=== PATIENT | female | born 1990 | race Caucasian/White ===

== ENCOUNTER 2017-06-27 20:10 | Emergency (ER) | payer BC, MEDICAID ==
[2017-06-27 20:24] VITALS: BP 138/91
[2017-06-27] MEDS ORDERED: Lactated Ringers 1,000 ML IV ONE (20:50)
[2017-06-27] MEDS ORDERED: Atropine/Diphenoxylate 0.025-2.5 MG Tab PO ONE (20:51)
[2017-06-27] MEDS ORDERED: Ondansetron 4 MG Tab.DIS PO ONE (20:51)
--- NOTE | 2017-06-27 20:58 | EDM.PDOC ---
ED HPI GENERAL MEDICAL PROBLEM - General Chief Complaint: Gastrointestinal Problem Stated Complaint: NOT ABLE TO KEEP ANYTHING DOWN 24 HOURS Time Seen by Provider: 06/27/17 20:45 Source of Information: Reports: Patient, Old Records, RN History Limitations: Reports: No Limitations - History of Present Illness INITIAL COMMENTS - FREE TEXT/NARRATIVE: 27 yo female presents with vomiting and diarrhea since yesterday afternoon. No bleeding. Thinks she has had a low grade fever. No known exposures. Is dizzy with standing now. 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) (none) - Related Data Allergies Allergy/AdvReac Type Severity Reaction Status Date / Time No Known Allergies Allergy Verified 04/06/15 02:18 Home Meds: Home Meds NK [No Known Home Meds] 06/27/17 [History] Past Medical History - Past Health History Medical/Surgical History: Denies 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 Denies: Distension, Hematemesis, Hematochezia, Melena : Reports: No Symptoms Musculoskeletal: Reports: No Symptoms Skin: Reports: No Symptoms Neurological: Reports: No Symptoms Psychiatric: Reports: No Symptoms ED EXAM, GI/ABD - Physical Exam Exam: See Below Exam Limited By: No Limitations General Appearance: Alert, WD/WN, No Apparent Distress Eyes: Bilateral: Normal Appearance Ears: Normal External Exam, Normal Canal, Hearing Grossly Normal, Normal TMs Nose: Normal Inspection, Normal Mucosa, No Blood Throat/Mouth: Normal Inspection, Normal Lips, Normal Oropharynx, Normal Voice, No Airway Compromise Head: Atraumatic, Normocephalic Neck: Normal Inspection, Supple Respiratory/Chest: No Respiratory Distress, Lungs Clear, Normal Breath Sounds, No Accessory Muscle Use Cardiovascular: Regular Rate, Rhythm, No Edema GI/Abdominal Exam: Soft, Non-Tender, No Distention, Abnormal Bowel Sounds ( increased) Back Exam: Normal Inspection. No: CVA Tenderness (R), CVA Tenderness (L) Extremities: Normal Inspection, Normal Range of Motion, Non-Tender, No Pedal Edema Neurological: Alert, Oriented, CN II-XII Intact, Normal Cognition, No Motor/ Sensory Deficits Psychiatric: Normal Affect, Normal Mood Skin Exam: Warm, Dry, Intact, Normal Color, No Rash Lymphatic: No Adenopathy Course - Vital Signs Text/Narrative:: Feeling better after treatment. Last Recorded V/S: Last Vital Signs Temp 37.4 C 06/27/17 20:38 Pulse 118 H 06/27/17 20:38 Resp 16 06/27/17 20:38 BP 138/91 H 06/27/17 20:38 Pulse Ox 95 06/27/17 20:38 - Orders/Labs/Meds Orders: Active Orders 24 hr Category Date Time Status Lactated Ringers [Ringers, Lactated] 1,000 ml Med 06/27/17 20:50 Active IV BOLUS Medication Orders Lactated Ringer's (Ringers, Lactated) 1,000 mls @ 1,000 mls/hr IV BOLUS ONE Stop: 06/27/17 21:49 Last Admin: 06/27/17 21:03 Dose: 1,000 mls/hr Labs: Laboratory Tests 06/27/17 Range/Units 20:52 Sodium 140 (140-148) mmol/L Potassium 3.5 L (3.6-5.2) mmol/L Chloride 100 (100-108) mmol/L Carbon Dioxide 25 (21-32) mmol/L Anion Gap 18.5 H (5.0-14.0) mmol/L BUN 15 D (7-18) mg/dL Creatinine 0.9 (0.6-1.0) mg/dL Est Cr Clr Drug Dosing 85.98 mL/min Estimated GFR (MDRD) > 60 (>60) Glucose 95 (74-106) mg/dL Calcium 9.4 (8.5-10.1) mg/dL Meds: Medications Generic Name Dose Route Start Last Admin Trade Name Junie PRN Reason Stop Dose Admin Lactated Ringer's 1,000 mls @ 1,000 mls/hr 06/27/17 20:50 06/27/17 21:03 Ringers, Lactated IV 06/27/17 21:49 1,000 mls/hr BOLUS ONE Administration Discontinued Medications Generic Name Dose Route Start Last Admin Trade Name Junie PRN Reason Stop Dose Admin Diphenoxylate HCl/Atropine 2 tab 06/27/17 20:51 06/27/17 21:03 Lomotil 0.025-2.5 Mg PO 06/27/17 20:52 2 tab ONETIME ONE Administration Ondansetron HCl 4 mg 06/27/17 20:51 06/27/17 21:03 Zofran Odt PO 06/27/17 20:52 4 mg ONETIME ONE Administration Departure - Departure Time of Disposition: 22:15 Disposition: Home, Self-Care 01 Condition: Good Clinical Impression: Nausea vomiting and diarrhea - Discharge Information Referrals: PCP,None [Primary Care Provider] - Forms: ED Department Discharge - My Orders Last 24 Hours: My Active Orders 06/27/17 20:50 Lactated Ringers [Ringers, Lactated] 1,000 ml IV BOLUS - Assessment/Plan Last 24 Hours: My Active Orders 06/27/17 20:50 Lactated Ringers [Ringers, Lactated] 1,000 ml IV BOLUS
== END 2017-06-27 22:20 | disposition home or self-care (01) ==
LOC: JP.ED 20:10
DX: R11.2 Nausea with vomiting, unspecified (principal); R19.7 Diarrhea, unspecified
CPT/HCPCS: 36415; 80048; 96360; 99284; A9270; J7120

== ENCOUNTER 2019-09-22 09:49 | Inpatient (IN) | payer MEDICAID ==
[2019-09-22] MEDS ORDERED: Sodium Chloride 0.9% 10 ML Syringe FLUSH PRN (10:11)
[2019-09-22] MEDS ORDERED: Ondansetron 4 MG/2 ML SDV IV PRN (10:11)
[2019-09-22] MEDS ORDERED: Acetaminophen 325 MG Tab PO PRN (10:11)
[2019-09-22] MEDS ORDERED: Misoprostol 50 MCG (1/2 of 100 MCG) Tab VAG ONE (10:11)
--- NOTE | 2019-09-22 11:38 | PCM.LDHP ---
L&D History of Present Illness - General Date of Service: 09/22/19 Admit Problem/Dx: Patient Status Order with Admit Dx/Problem 09/22/19 10:11 Patient Status [ADT] Routine Admission Diagnosis/Problem Admission Diagnosis/Problem - Related Data Allergies/Adverse Reactions: Allergies Allergy/AdvReac Type Severity Reaction Status Date / Time No Known Allergies Allergy Verified 04/06/15 02:18 Home Medications: Home Meds Vit No.129/Iron/FA [ One Daily Tablet] 1 tab PO DAILY 09/22/19 [History] Past Medical History - Past Health History Medical/Surgical History: Denies Medical/Surgical History Gastrointestinal History: Reports: None 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: - Past Surgical History Musculoskeletal Surgical History: Reports: ORIF, Other (See Below) Social & Family History - Family History Family Medical History: Noncontributory - Tobacco Use Smoking Status *Q: Former Smoker Used Tobacco, but Quit: Yes Month/Year Tobacco Last Used: january 2019 Second Hand Smoke Exposure: No - Caffeine Use Caffeine Use: Reports: Coffee - Recreational Drug Use Recreational Drug Use: No H&P Review of Systems - Review of Systems: Review Of Systems: See Below General: Reports: No Symptoms HEENT: Reports: No Symptoms Pulmonary: Reports: No Symptoms Cardiovascular: Reports: No Symptoms Gastrointestinal: Reports: No Symptoms Genitourinary: Reports: No Symptoms Musculoskeletal: Reports: No Symptoms Skin: Reports: No Symptoms Psychiatric: Reports: No Symptoms Neurological: Reports: No Symptoms Hematologic/Lymphatic: Reports: No Symptoms Immunologic: Reports: No Symptoms L&D Exam - Exam Exam: See Below - Vital Signs Vital Signs: Last Vital Signs Temp 35.9 C L 09/22/19 09:50 Pulse 133 H 09/22/19 09:50 Resp BP 86/46 L 09/22/19 09:50 Pulse Ox Weight: 91.172 kg - OB Specific Movement: Active Heart Tones: Present Heart Rate (FHR) Variability: Moderate (6-25 bmp) Presentation: Vertex - Espinosa Score Espinosa Score Cervix Position: Midposition Espinosa Score Consistency: Soft Espinosa Score Effacement: >80% Espinosa Score Dilation: 1-2 cm Espinosa Score Infant's Station: -2 Espinosa Score Total: 8 - Exam General: Alert, Oriented, Cooperative HEENT: PERRLA, Conjunctiva Clear, EACs Clear, EOMI, Hearing Intact, Mucosa Moist & [place], Nares Patent, Normal Nasal Septum, Posterior Pharynx Clear, Pupils Equ al, Pupils Reactive, TMs Clear Neck: Supple, Trachea Midline Lungs: Clear to Auscultation, Normal Respiratory Effort Cardiovascular: Regular Rate, Regular Rhythm GI/Abdominal Exam: Normal Bowel Sounds, Soft, Non-Tender, No Organomegaly, No Distention, No Abnormal Bruit, No Mass, Pelvis Stable Rectal Exam: Normal Exam, Normal Rectal Tone Genitourinary: Normal external exam, Normal bimanual exam, Normal speculum exam Back Exam: Normal Inspection, Full Range of Motion Extremities: Normal Inspection, Normal Range of Motion, Non-Tender, No Pedal Edema, Normal Capillary Refill Skin: Warm, Dry, Intact Neurological: Cranial Nerves Intact, Reflexes Equal Bilateral Psychiatric: Alert, Normal Affect, Normal Mood - Patient Data Lab Results Last 24 hrs: Laboratory Results - last 24 hr 09/22/19 09/22/19 09/22/19 Range/Units 10:05 10:21 10:21 WBC 11.8 H (4.5-11.0) K/uL RBC 4.33 (3.30-5.50) M/uL Hgb 12.9 (12.0-15.0) g/dL Hct 39.7 (36.0-48.0) % MCV 92 (80-98) fL MCH 30 (27-31) pg MCHC 33 (32-36) % Plt Count 231 (150-400) K/uL Neut % (Auto) 71 H (36-66) % Lymph % (Auto) 21 L (24-44) % [place] % (Auto) 7 H (2-6) % Eos % (Auto) 0 L (2-4) % Baso % (Auto) 0 (0-1) % Sodium 139 L (140-148) mmol/L Potassium 3.5 L (3.6-5.2) mmol/L Chloride 103 (100-108) mmol/L Carbon Dioxide 27 (21-32) mmol/L Anion Gap 12.5 (5.0-14.0) mmol/L BUN 10 (7-18) mg/dL Creatinine 0.7 (0.6-1.0) mg/dL Est Cr Clr Drug Dosing 108.63 mL/min Estimated GFR (MDRD) > 60 (>60) Glucose 78 (74-106) mg/dL Calcium 9.1 (8.5-10.1) mg/dL Total Bilirubin 0.3 D (0.2-1.0) mg/dL AST 13 L (15-37) U/L ALT 10 L (12-78) U/L Alkaline Phosphatase 122 H D (46-116) U/L Total Protein 6.8 (6.4-8.2) g/dL Albumin 2.9 L (3.4-5.0) g/dL Globulin 3.9 H (2.3-3.5) g/dL Albumin/Globulin Ratio 0.7 L (1.2-2.2) Urine Color Yellow (YELLOW) Urine Appearance Clear (CLEAR) Urine pH 7.0 (5.0-8.0) Ur Specific [place] 1.025 (1.008-1.030) Urine Protein Negative (NEGATIVE) mg/dL Urine Glucose (UA) Negative (NEGATIVE) mg/dL Urine Ketones Negative (NEGATIVE) mg/dL Urine Occult Blood Negative (NEGATIVE) Urine Nitrite Negative (NEGATIVE) Urine Bilirubin Negative (NEGATIVE) Urine Urobilinogen 0.2 (0.2-1.0) EU/dL Ur Leukocyte Esterase Negative (NEGATIVE) Urine RBC 0-5 (0-5) Urine WBC 0-5 (0-5) Ur Epithelial Cells Few Amorphous Sediment Not seen Urine Bacteria Few Urine Mucus Few Result Diagrams: 09/22/19 10:21 09/22/19 10:21 - Problem List (1) SNOMED Code(s): 41000450 ICD Code: Z34.90 - ENCNTR FOR SUPRVSN OF NORMAL , UNSP, UNSP TRIMESTER Status: Acute Current Visit: Yes Qualifiers: Weeks of gestation: 39 weeks Qualified Code(s): Z3A.39 - 39 weeks gestation of (2) History of precipitous delivery SNOMED Code(s): 397417541 ICD Code: Z87.59 - PERSONAL HISTORY OF COMP OF PREG, CHLDBRTH AND THE PUERP Status: Acute Current Visit: Yes (3) Encounter for induction of labor SNOMED Code(s): 400992692 ICD Code: Z34.90 - ENCNTR FOR SUPRVSN OF NORMAL , UNSP, UNSP TRIMESTER Status: Acute Current Visit: Yes Problem List Initiated/Reviewed/Updated: Yes Orders Last 24hrs: Active Orders 24 hr Category Date Time Status Patient Status [ADT] Routine ADT 09/22/19 10:11 Ordered Antiembolic Devices [RC] .Routine Care 09/22/19 10:13 Ordered Communication Order [RC] ASDIRECTED Care 09/22/19 10:11 Ordered Heart Tones [RC] PER UNIT ROUTINE Care 09/22/19 10:11 Ordered Non Stress Test [RC] Click to Edit Care 09/22/19 10:11 Ordered Notify Provider Vital Signs [RC] PRN Care 09/22/19 10:11 Ordered Notify Provider [RC] PRN Care 09/22/19 10:11 Ordered OB Check [OM.PC] Click to Edit Care 09/22/19 10:04 Ordered Up ad [place] [RC] ASDIRECTED Care 09/22/19 10:11 Ordered VTE/DVT Education [RC] Click to Edit Care 09/22/19 10:13 Ordered Vital Signs [RC] PER UNIT ROUTINE Care 09/22/19 10:11 Ordered Acetaminophen [Tylenol] Med 09/22/19 10:11 Ordered 650 mg PO Q4H PRN Ondansetron [Zofran] Med 09/22/19 10:11 Ordered 4 mg IV Q4H PRN Sodium Chloride 0.9% [Saline Flush] Med 09/22/19 10:11 Ordered 10 ml FLUSH ASDIRECTED PRN DVT/VTE Prophylaxis Reflex [OM.PC] Routine Oth 09/22/19 10:11 Ordered Saline Lock Insert [OM.PC] Routine Oth 09/22/19 10:11 Ordered Resuscitation Status Routine Resus Stat 09/22/19 10:11 Ordered Medication Orders Acetaminophen (Tylenol) 650 mg PO Q4H PRN PRN Reason: Pain (Mild 1-3) and fever Ondansetron HCl (Zofran) 4 mg IV Q4H PRN PRN Reason: Nausea/Vomiting Sodium Chloride (Saline Flush) 10 ml FLUSH ASDIRECTED PRN PRN Reason: Keep Vein Open Assessment/Plan Comment:: 09/22/2019 29 yo here at 39 4/7 gestational weeks here for induction of labor due to history of precipitous FHTS category one Contractions irregular SVE-1-2/80/-2 50mcg cytotec placed vaginally Plan- Monitor for active labor Monitor FHTs Up ad shelly Can eat regular diet May get in tub for pain control Will plan and anticipate a vaginal delivery
--- NOTE | 2019-09-22 18:14 | PCM.PNLD ---
Labor Progress Note - VS & Meds Vital Signs: Last Vital Signs Temp 35.9 C L 09/22/19 09:50 Pulse 81 09/22/19 12:00 Resp 18 09/22/19 12:00 BP 114/62 09/22/19 12:00 Pulse Ox 97 09/22/19 12:00 Active Medications: Current Medications Acetaminophen (Tylenol) 650 mg PO Q4H PRN PRN Reason: Pain (Mild 1-3) and fever Oxytocin/Sodium Chloride (Pitocin In Ns 20 Units/1,000 Ml) 20 unit in 1,000 mls @ 500 mls/hr IV TITRATE VIRGILIO; Protocol Ondansetron HCl (Zofran) 4 mg IV Q4H PRN PRN Reason: Nausea/Vomiting Sodium Chloride (Saline Flush) 10 ml FLUSH ASDIRECTED PRN PRN Reason: Keep Vein Open Discontinued Medications Misoprostol (Cytotec) 50 mcg VAG ONETIME ONE Stop: 09/22/19 10:12 Last Admin: 09/22/19 10:55 Dose: 50 mcg Documented by: - Uterine Contractions Uterine Monitoring Mode: External [place] Contraction Frequency (min): 1.5-2 Contraction Duration (sec): 50-80 Contraction Intensity: Mild to Moderate Uterine Resting Tone: Soft - Monitoring Heart Rate (FHR) Variability: Moderate (6-25 bmp) - Vaginal Exam Dilation (cm): 3 Effacement (Percent): 80 Cervical Position: Midposition Sterile Vaginal Exam Performed By: Selina Roland Vaginal Exam Comment: attempted rupture of membranes - Labor Progress (Free Text) Labor Progress: 09/22/2019 Patient progressing nicely SVE-3/80/-1 FHTs category one Contractions regular Patient tolerating pain with position change Plan- Continue to monitor labor Continue to monitor FHTs Pain management per patient request May get in tub May eat regular diet Plan and anticipate a vaginal delivery
--- NOTE | 2019-09-22 18:15 | PCM.PNLD ---
Labor Progress Note - VS & Meds Vital Signs: Last Vital Signs Temp 35.9 C L 09/22/19 09:50 Pulse 81 09/22/19 12:00 Resp 18 09/22/19 12:00 BP 114/62 09/22/19 12:00 Pulse Ox 97 09/22/19 12:00 Active Medications: Current Medications Acetaminophen (Tylenol) 650 mg PO Q4H PRN PRN Reason: Pain (Mild 1-3) and fever Oxytocin/Sodium Chloride (Pitocin In Ns 20 Units/1,000 Ml) 20 unit in 1,000 mls @ 500 mls/hr IV TITRATE VIRGILIO; Protocol Ondansetron HCl (Zofran) 4 mg IV Q4H PRN PRN Reason: Nausea/Vomiting Sodium Chloride (Saline Flush) 10 ml FLUSH ASDIRECTED PRN PRN Reason: Keep Vein Open Discontinued Medications Misoprostol (Cytotec) 50 mcg VAG ONETIME ONE Stop: 09/22/19 10:12 Last Admin: 09/22/19 10:55 Dose: 50 mcg Documented by: - Uterine Contractions Uterine Monitoring Mode: External [place] Contraction Frequency (min): 1.5-2 Contraction Duration (sec): 50-80 Contraction Intensity: Mild to Moderate Uterine Resting Tone: Soft - Monitoring Heart Rate (FHR) Variability: Moderate (6-25 bmp) - Vaginal Exam Dilation (cm): 4 Effacement (Percent): 80 Cervical Position: Anterior Sterile Vaginal Exam Performed By: Selina Roland Vaginal Exam Comment: AROM clear
[2019-09-22] MEDS ORDERED: Misoprostol 200 MCG Tab ONE (20:27)
[2019-09-22] MEDS ORDERED: Lidocaine 1% 50 ML MDV ONE (20:27)
[2019-09-22] MEDS ORDERED: Carboprost Tromethamine 250 MCG/1 ML Amp ONE (20:27)
[2019-09-22] MEDS ORDERED: Methylergonovine 0.2 MG/1 ML Amp ONE (20:27)
[2019-09-22] MEDS: fentaNYL 100 MCG/2 ML SDV ONE ×2 (21:07→23:44)
[2019-09-22] MEDS ORDERED: fentaNYL 100 MCG/2 ML SDV IVPUSH ONE (21:07)
[2019-09-22] MEDS ORDERED: Ibuprofen 200 MG Tab, 24 Tab Bulk Bottle PO PRN (21:27)
[2019-09-22] MEDS ORDERED: Lanolin 100% Cream 40 GM Tube TOP ONE (21:27)
[2019-09-22] MEDS ORDERED: Docusate Sodium 100 MG Cap PO PRN (21:27)
[2019-09-22] MEDS ORDERED: Witch Hazel Medicated Pads 100/Jar TOP ONE (21:27)
[2019-09-22] MEDS ORDERED: Acetaminophen 325 MG Tab, 50 Tab Bulk Bottle PO PRN (21:27)
[2019-09-22] MEDS ORDERED: Benzocaine 20% Top Spray 56 GM Bottle TOP ONE (21:27)
--- NOTE | 2019-09-22 21:36 | PCM.DEL ---
L & D Note - General Info Date of Service: 09/22/19 Mother's Due Date: 09/26/19 - Delivery Note Labor: Spontaneous Delivery Outcome: Livebirth Infant Delivery Method: Spontaneous Vaginal Delivery-Single Infant Delivery Mode: Spontaneous Presentation: Vertex Nuchal Cord: None Anesthesia Type: None Amniotic Fluid Description: Clear Episiotomy Type: None Laceration: None, Other (small perineal skid) Placenta: Intact, Spontaneous Cord: 3 Vessels Estimated Blood Loss: 200 Resuscitation Needed: No : Bulb Syringe, Stimulated, Warmed, [place] Used Score 1 min: 9 Score 5 min: 9 Second Stage Interventions: Reports: Second Nurse Assessed Progress of Descent, Second Nurse Reviewed Contraction Pattern, Second Nurse Reviewed Heart Tones, Encouragement Given, Pushing Effectively, Pushing, Knee Chest Position Delivery Comments (Free Text/Narrative):: 09/22/2019 29 yo delivered a viable male in BARBER position over and intact perineum at 2040 on 09/22/2019. was then delivered and placed on prewarmed blanket on mothers abdomen, delayed cord clamping done for approximately 90 seconds, cord then double clamped and father of infant cut the cord. Infant was dried, stimulated and kept warm, infant began to pink in color. APGARS-9/9, weight-8lbs 0.3oz, length-20.5inches, then placenta was a little slow to come so some IV fentanyl was given and once patient relaxed placenta came intact fletcher. Three vessel cord-no lacerations noted of vagina, cervix, or rectum, small perineal skid not bleeding not repaired. now skin to skin and stable with mother in labor and delivery room. Stages of labor- [id number] - General Info Date of Service: 09/22/19 Functional Status: Reports: Pain Controlled - Review of Systems General: Reports: No Symptoms HEENT: Reports: No Symptoms Pulmonary: Reports: No Symptoms Cardiovascular: Reports: No Symptoms Gastrointestinal: Reports: No Symptoms Genitourinary: Reports: No Symptoms Musculoskeletal: Reports: No Symptoms Skin: Reports: No Symptoms Neurological: Reports: No Symptoms Psychiatric: Reports: No Symptoms - Patient Data Vitals - Most Recent: Last Vital Signs Temp 36.6 C 09/22/19 19:45 Pulse 84 09/22/19 19:45 Resp 18 09/22/19 19:45 BP 135/89 09/22/19 19:45 Pulse Ox 98 09/22/19 19:45 Weight - Most Recent: 91.172 kg Lab Results Last 24 Hours: Laboratory Results - last 24 hr 09/22/19 09/22/19 09/22/19 Range/Units 10:05 10:21 10:21 WBC 11.8 H (4.5-11.0) K/uL RBC 4.33 (3.30-5.50) M/uL Hgb 12.9 (12.0-15.0) g/dL Hct 39.7 (36.0-48.0) % MCV 92 (80-98) fL MCH 30 (27-31) pg MCHC 33 (32-36) % Plt Count 231 (150-400) K/uL Neut % (Auto) 71 H (36-66) % Lymph % (Auto) 21 L (24-44) % [place] % (Auto) 7 H (2-6) % Eos % (Auto) 0 L (2-4) % Baso % (Auto) 0 (0-1) % Sodium 139 L (140-148) mmol/L Potassium 3.5 L (3.6-5.2) mmol/L Chloride 103 (100-108) mmol/L Carbon Dioxide 27 (21-32) mmol/L Anion Gap 12.5 (5.0-14.0) mmol/L BUN 10 (7-18) mg/dL Creatinine 0.7 (0.6-1.0) mg/dL Est Cr Clr Drug Dosing 108.63 mL/min Estimated GFR (MDRD) > 60 (>60) Glucose 78 (74-106) mg/dL Calcium 9.1 (8.5-10.1) mg/dL Total Bilirubin 0.3 D (0.2-1.0) mg/dL AST 13 L (15-37) U/L ALT 10 L (12-78) U/L Alkaline Phosphatase 122 H D (46-116) U/L Total Protein 6.8 (6.4-8.2) g/dL Albumin 2.9 L (3.4-5.0) g/dL Globulin 3.9 H (2.3-3.5) g/dL Albumin/Globulin Ratio 0.7 L (1.2-2.2) Urine Color Yellow (YELLOW) Urine Appearance Clear (CLEAR) Urine pH 7.0 (5.0-8.0) Ur Specific [place] 1.025 (1.008-1.030) Urine Protein Negative (NEGATIVE) mg/dL Urine Glucose (UA) Negative (NEGATIVE) mg/dL Urine Ketones Negative (NEGATIVE) mg/dL Urine Occult Blood Negative (NEGATIVE) Urine Nitrite Negative (NEGATIVE) Urine Bilirubin Negative (NEGATIVE) Urine Urobilinogen 0.2 (0.2-1.0) EU/dL Ur Leukocyte Esterase Negative (NEGATIVE) Urine RBC 0-5 (0-5) Urine WBC 0-5 (0-5) Ur Epithelial Cells Few Amorphous Sediment Not seen Urine Bacteria Few Urine Mucus Few Med Orders - Current: Current Medications Acetaminophen (Tylenol) 650 mg PO Q4H PRN PRN Reason: Pain (Mild 1-3) and fever Acetaminophen (Tylenol Bulk Bottle) 0 mg PO Q4H PRN PRN Reason: Pain Benzocaine (Nuxe-S-Kxdfgyy 20% [place]) 0 gm TOP ONETIME ONE Stop: 09/22/19 21:28 Emollient Ointment (Lansinoh Hpa) 1 gm TOP ONETIME ONE Stop: 09/22/19 21:28 Oxytocin/Sodium Chloride (Pitocin In Ns 20 Units/1,000 Ml) 20 unit in 1,000 mls @ 500 mls/hr IV TITRATE VIRGILIO; Protocol Ibuprofen (Motrin Bulk Bottle) 600 mg PO Q6H PRN PRN Reason: Pain Ondansetron HCl (Zofran) 4 mg IV Q4H PRN PRN Reason: Nausea/Vomiting Sodium Chloride (Saline Flush) 10 ml FLUSH ASDIRECTED PRN PRN Reason: Keep Vein Open Witch Brittani (Tucks) 1 pad TOP ONETIME ONE Stop: 09/22/19 21:28 Discontinued Medications Carboprost Tromethamine (Hemabate Ds) Confirm Administered Dose 250 mcg .ROUTE .STK-MED ONE Stop: 09/22/19 20:28 Fentanyl (Sublimaze) Confirm Administered Dose 100 mcg .ROUTE .STK-MED ONE Stop: 09/22/19 21:05 Lidocaine HCl (Xylocaine 1%) Confirm Administered Dose 100 ml .ROUTE .STK-MED ONE Stop: 09/22/19 20:28 Methylergonovine Maleate (Methergine) Confirm Administered Dose 0.2 mg .ROUTE .STK-MED ONE Stop: 09/22/19 20:28 Misoprostol (Cytotec) 50 mcg VAG ONETIME ONE Stop: 09/22/19 10:12 Last Admin: 09/22/19 10:55 Dose: 50 mcg Documented by: Misoprostol (Cytotec) Confirm Administered Dose 800 mcg .ROUTE .STK-MED ONE Stop: 09/22/19 20:28 - Exam General: Alert, Oriented, Cooperative HEENT: Pupils Equal, Pupils Reactive, EOMI, Mucous Membr. Moist/[place] Neck: Supple Lungs: Clear to Auscultation, Normal Respiratory Effort Cardiovascular: Regular Rate, Regular Rhythm GI/Abdominal Exam: Normal Bowel Sounds, Soft, Non-Tender, No Organomegaly, No Distention, No Abnormal Bruit, No Mass, Pelvis Stable (Female) Exam: Normal External Exam, Normal Speculum Exam, Normal Bimanual Exam Back Exam: Normal Inspection, Full Range of Motion Extremities: Normal Inspection, Normal Range of Motion, Non-Tender, No Pedal Edema, Normal Capillary Refill Skin: Warm, Dry, Intact Neurological: No New Focal Deficit Psy/Mental Status: Alert, Normal Affect, Normal Mood - Problem List & Annotations (1) SNOMED Code(s): 44067884 Code(s): Z34.90 - ENCNTR FOR SUPRVSN OF NORMAL , UNSP, UNSP TRIMESTER Status: Acute Current Visit: Yes Qualifiers: Weeks of gestation: 39 weeks Qualified Code(s): Z3A.39 - 39 weeks gestation of (2) History of precipitous delivery SNOMED Code(s): 958717922 Code(s): Z87.59 - PERSONAL HISTORY OF COMP OF PREG, CHLDBRTH AND THE PUERP Status: Acute Current Visit: Yes (3) Encounter for induction of labor SNOMED Code(s): 843257161 Code(s): Z34.90 - ENCNTR FOR SUPRVSN OF NORMAL , UNSP, UNSP TRIMESTER Status: Acute Current Visit: Yes - Problem List Review Problem List Initiated/Reviewed/Updated: Yes - My Orders Last 24 Hours: My Active Orders 09/22/19 10:04 OB Check [OM.PC] Click to Edit 09/22/19 10:11 Patient Status [ADT] Routine Communication Order [RC] ASDIRECTED Heart Tones [RC] PER UNIT ROUTINE Non Stress Test [RC] Click to Edit Notify Provider Vital Signs [RC] PRN Notify Provider [RC] PRN Up ad [place] [RC] ASDIRECTED Vital Signs [RC] PER UNIT ROUTINE Acetaminophen [Tylenol] 650 mg PO Q4H PRN Ondansetron [Zofran] 4 mg IV Q4H PRN Sodium Chloride 0.9% [Saline Flush] 10 ml FLUSH ASDIRECTED PRN DVT/VTE Prophylaxis Reflex [OM.PC] Routine Saline Lock Insert [OM.PC] Routine Resuscitation Status Routine 09/22/19 10:13 Antiembolic Devices [RC] .Routine VTE/DVT Education [RC] Click to Edit 09/22/19 Lunch Regular Diet [DIET] 09/22/19 15:45 Oxytocin/Normal Saline [Pitocin in NS 20 Units/1,000 ML] 20 unit in 1,000 ml IV TITRATE 09/22/19 21:27 Patient Status [ADT] Routine Vital Signs [RC] PFP Acetaminophen [Tylenol Bulk Bottle] See Dose Instructions PO Q4H PRN Benzocaine [Sqqx-P-Hjsgrcl 20% [place]] See Dose Instructions TOP ONETIME ONE Docusate Sodium [Colace] 100 mg PO BID PRN Ibuprofen [Motrin Bulk Bottle] 600 mg PO Q6H PRN Lanolin [Lansinoh HPA] 1 gm TOP ONETIME ONE witch Brittani [Tucks] 1 pad TOP ONETIME ONE Assess Lochia [WOMSER] Per Unit Routine Assess Uterine Involution [WOMSER] Per Unit Routine 09/22/19 21:28 Ice Therapy [OM.PC] Per Unit Routine Perineal Care [OM.PC] Per Unit Routine Sitz Bath [OM.PC] Per Unit Routine 09/23/19 06:00 CBC WITH AUTO DIFF [HEME] Routine - Assessment Assessment:: 09/22/2019 29 yo G3 now P3 delivered without complications - Plan Plan:: 09/22/2019 29 yo here at 39 4/7 gestational weeks here for induction of labor due to history of precipitous FHTS category one Contractions irregular SVE-1-2/80/-2 50mcg cytotec placed vaginally Plan- Monitor for active labor Monitor FHTs Up ad [place] Can eat regular diet May get in tub for pain control Will plan and anticipate a vaginal delivery 09/22/2019 Routine cares Encourage and support
--- NOTE | 2019-09-23 08:04 | PCM.PNPP ---
- General Info Date of Service: 09/23/19 Functional Status: Reports: Pain Controlled - Review of Systems General: Reports: No Symptoms HEENT: Reports: No Symptoms Pulmonary: Reports: No Symptoms Cardiovascular: Reports: No Symptoms Gastrointestinal: Reports: No Symptoms Genitourinary: Reports: No Symptoms Musculoskeletal: Reports: No Symptoms Skin: Reports: No Symptoms Neurological: Reports: No Symptoms Psychiatric: Reports: No Symptoms - General Info Date of Service: 09/23/19 - Patient Data Vital Signs - Most Recent: Last Vital Signs Temp 35.9 C L 09/23/19 07:36 Pulse 86 09/23/19 07:36 Resp 16 09/23/19 07:36 BP 136/77 09/23/19 07:36 Pulse Ox 98 09/23/19 07:36 Weight - Most Recent: 91.172 kg I&O - Last 24 Hours: Intake & Output 09/22/19 09/23/19 09/23/19 22:59 06:59 14:59 Intake Total 750 Balance 750 Lab Results - Last 24 Hours: Laboratory Results - last 24 hr 09/22/19 09/22/19 09/22/19 Range/Units 10:05 10:21 10:21 WBC 11.8 H (4.5-11.0) K/uL RBC 4.33 (3.30-5.50) M/uL Hgb 12.9 (12.0-15.0) g/dL Hct 39.7 (36.0-48.0) % MCV 92 (80-98) fL MCH 30 (27-31) pg MCHC 33 (32-36) % Plt Count 231 (150-400) K/uL Neut % (Auto) 71 H (36-66) % Lymph % (Auto) 21 L (24-44) % Gaines % (Auto) 7 H (2-6) % Eos % (Auto) 0 L (2-4) % Baso % (Auto) 0 (0-1) % Sodium 139 L (140-148) mmol/L Potassium 3.5 L (3.6-5.2) mmol/L Chloride 103 (100-108) mmol/L Carbon Dioxide 27 (21-32) mmol/L Anion Gap 12.5 (5.0-14.0) mmol/L BUN 10 (7-18) mg/dL Creatinine 0.7 (0.6-1.0) mg/dL Est Cr Clr Drug Dosing 108.63 mL/min Estimated GFR (MDRD) > 60 (>60) Glucose 78 (74-106) mg/dL Calcium 9.1 (8.5-10.1) mg/dL Total Bilirubin 0.3 D (0.2-1.0) mg/dL AST 13 L (15-37) U/L ALT 10 L (12-78) U/L Alkaline Phosphatase 122 H D (46-116) U/L Total Protein 6.8 (6.4-8.2) g/dL Albumin 2.9 L (3.4-5.0) g/dL Globulin 3.9 H (2.3-3.5) g/dL Albumin/Globulin Ratio 0.7 L (1.2-2.2) Urine Color Yellow (YELLOW) Urine Appearance Clear (CLEAR) Urine pH 7.0 (5.0-8.0) Ur Specific [place] 1.025 (1.008-1.030) Urine Protein Negative (NEGATIVE) mg/dL Urine Glucose (UA) Negative (NEGATIVE) mg/dL Urine Ketones Negative (NEGATIVE) mg/dL Urine Occult Blood Negative (NEGATIVE) Urine Nitrite Negative (NEGATIVE) Urine Bilirubin Negative (NEGATIVE) Urine Urobilinogen 0.2 (0.2-1.0) EU/dL Ur Leukocyte Esterase Negative (NEGATIVE) Urine RBC 0-5 (0-5) Urine WBC 0-5 (0-5) Ur Epithelial Cells Few Amorphous Sediment Not seen Urine Bacteria Few Urine Mucus Few 09/23/19 Range/Units 06:00 WBC 17.0 H (4.5-11.0) K/uL RBC 4.12 (3.30-5.50) M/uL Hgb 12.5 (12.0-15.0) g/dL Hct 37.4 (36.0-48.0) % MCV 91 (80-98) fL MCH 30 (27-31) pg MCHC 33 (32-36) % Plt Count 220 (150-400) K/uL Neut % (Auto) 78 H (36-66) % Lymph % (Auto) 16 L (24-44) % Gaines % (Auto) 6 (2-6) % Eos % (Auto) 0 L (2-4) % Baso % (Auto) 0 (0-1) % Sodium (140-148) mmol/L Potassium (3.6-5.2) mmol/L Chloride (100-108) mmol/L Carbon Dioxide (21-32) mmol/L Anion Gap (5.0-14.0) mmol/L BUN (7-18) mg/dL Creatinine (0.6-1.0) mg/dL Est Cr Clr Drug Dosing mL/min Estimated GFR (MDRD) (>60) Glucose (74-106) mg/dL Calcium (8.5-10.1) mg/dL Total Bilirubin (0.2-1.0) mg/dL AST (15-37) U/L ALT (12-78) U/L Alkaline Phosphatase (46-116) U/L Total Protein (6.4-8.2) g/dL Albumin (3.4-5.0) g/dL Globulin (2.3-3.5) g/dL Albumin/Globulin Ratio (1.2-2.2) Urine Color (YELLOW) Urine Appearance (CLEAR) Urine pH (5.0-8.0) Ur Specific [place] (1.008-1.030) Urine Protein (NEGATIVE) mg/dL Urine Glucose (UA) (NEGATIVE) mg/dL Urine Ketones (NEGATIVE) mg/dL Urine Occult Blood (NEGATIVE) Urine Nitrite (NEGATIVE) Urine Bilirubin (NEGATIVE) Urine Urobilinogen (0.2-1.0) EU/dL Ur Leukocyte Esterase (NEGATIVE) Urine RBC (0-5) Urine WBC (0-5) Ur Epithelial Cells Amorphous Sediment Urine Bacteria Urine Mucus Med Orders - Current: Current Medications Acetaminophen (Tylenol) 650 mg PO Q4H PRN PRN Reason: Pain (Mild 1-3) and fever Last Admin: 09/22/19 22:11 Dose: 650 mg Documented by: Acetaminophen (Tylenol Bulk Bottle) 0 mg PO Q4H PRN PRN Reason: Pain Docusate Sodium (Colace) 100 mg PO BID PRN PRN Reason: Constipation Oxytocin/Sodium Chloride (Pitocin In Ns 20 Units/1,000 Ml) 20 unit in 1,000 mls @ 500 mls/hr IV TITRATE VIRGILIO; Protocol Last Titration: 09/22/19 21:15 Dose: 125 mls/hr, 125 mls/hr Documented by: Ibuprofen (Motrin Bulk Bottle) 600 mg PO Q6H PRN PRN Reason: Pain Last Admin: 09/22/19 22:10 Dose: 600 mg Documented by: Ondansetron HCl (Zofran) 4 mg IV Q4H PRN PRN Reason: Nausea/Vomiting Sodium Chloride (Saline Flush) 10 ml FLUSH ASDIRECTED PRN PRN Reason: Keep Vein Open Discontinued Medications Benzocaine (Qleo-K-Dbgzcho 20% [place]) 0 gm TOP ONETIME ONE Stop: 09/22/19 21:28 Last Admin: 09/22/19 22:09 Dose: 1 spray Documented by: Carboprost Tromethamine (Hemabate Ds) Confirm Administered Dose 250 mcg .ROUTE .STK-MED ONE Stop: 09/22/19 20:28 Last Admin: 09/22/19 22:11 Dose: Not Given Documented by: Emollient Ointment (Lansinoh Hpa) 1 gm TOP ONETIME ONE Stop: 09/22/19 21:28 Last Admin: 09/22/19 22:10 Dose: 1 applic Documented by: Fentanyl (Sublimaze) Confirm Administered Dose 100 mcg .ROUTE .STK-MED ONE Stop: 09/22/19 21:05 Last Admin: 09/22/19 23:44 Dose: Not Given Documented by: Fentanyl (Sublimaze) 50 mcg IVPUSH ONETIME ONE Stop: 09/22/19 21:08 Last Admin: 09/22/19 21:07 Dose: 50 mcg Documented by: Lidocaine HCl (Xylocaine 1%) Confirm Administered Dose 100 ml .ROUTE .STK-MED ONE Stop: 09/22/19 20:28 Last Admin: 09/22/19 22:11 Dose: Not Given Documented by: Methylergonovine Maleate (Methergine) Confirm Administered Dose 0.2 mg .ROUTE .STK-MED ONE Stop: 09/22/19 20:28 Last Admin: 09/22/19 22:11 Dose: Not Given Documented by: Misoprostol (Cytotec) 50 mcg VAG ONETIME ONE Stop: 09/22/19 10:12 Last Admin: 09/22/19 10:55 Dose: 50 mcg Documented by: Misoprostol (Cytotec) Confirm Administered Dose 800 mcg .ROUTE .STK-MED ONE Stop: 09/22/19 20:28 Last Admin: 09/22/19 22:11 Dose: Not Given Documented by: Agustina Woodwardlesley) 1 pad TOP ONETIME ONE Stop: 09/22/19 21:28 Last Admin: 09/22/19 22:10 Dose: 1 applic Documented by: - Interaction Disposition, : in Room with Family Infant Feeding: Breastfed ; Nursed Well Support Person: - Recovery Exam Fundal Tone: Firm Fundal Level: At Umbilicus Fundal Placement: Midline Lochia Amount: Moderate Lochia Color: Rubra/Red Perineum Description: Intact, Minimal Bruising/Swelling Episiotomy/Laceration: Approximated Bladder Status: Voiding - Exam General: Alert, Oriented HEENT: Pupils Equal Neck: Supple Lungs: Clear to Auscultation, Normal Respiratory Effort Cardiovascular: Regular Rate, Regular Rhythm GI/Abdominal Exam: Normal Bowel Sounds, Soft, Non-Tender, No Organomegaly, No Distention, No Abnormal Bruit, No Mass, Pelvis Stable Extremities: Normal Inspection, Normal Range of Motion, Non-Tender, No Pedal Edema, Normal Capillary Refill Skin: Warm, Dry, Intact Neurological: No New Focal Deficit Psy/Mental Status: Alert, Normal Affect, Normal Mood - Problem List & Annotations (1) SNOMED Code(s): 37409390 Code(s): Z34.90 - ENCNTR FOR SUPRVSN OF NORMAL , UNSP, UNSP TRIMESTER Status: Acute Current Visit: Yes Qualifiers: Weeks of gestation: 39 weeks Qualified Code(s): Z3A.39 - 39 weeks gestation of (2) History of precipitous delivery SNOMED Code(s): 348039491 Code(s): Z87.59 - PERSONAL HISTORY OF COMP OF PREG, CHLDBRTH AND THE PUERP Status: Acute Current Visit: Yes (3) Encounter for induction of labor SNOMED Code(s): 001968896 Code(s): Z34.90 - ENCNTR FOR SUPRVSN OF NORMAL , UNSP, UNSP TRIMESTER Status: Acute Current Visit: Yes - Problem List Review Problem List Initiated/Reviewed/Updated: Yes - My Orders Last 24 Hours: My Active Orders 09/22/19 10:04 OB Check [OM.PC] Click to Edit 09/22/19 10:11 Patient Status [ADT] Routine Communication Order [RC] ASDIRECTED Heart Tones [RC] PER UNIT ROUTINE Non Stress Test [RC] Click to Edit Notify Provider Vital Signs [RC] PRN Notify Provider [RC] PRN Up ad [place] [RC] ASDIRECTED Vital Signs [RC] PER UNIT ROUTINE Acetaminophen [Tylenol] 650 mg PO Q4H PRN Ondansetron [Zofran] 4 mg IV Q4H PRN Sodium Chloride 0.9% [Saline Flush] 10 ml FLUSH ASDIRECTED PRN DVT/VTE Prophylaxis Reflex [OM.PC] Routine Saline Lock Insert [OM.PC] Routine Resuscitation Status Routine 09/22/19 10:13 Antiembolic Devices [RC] .Routine 09/22/19 Lunch Regular Diet [DIET] 09/22/19 15:45 Oxytocin/Normal Saline [Pitocin in NS 20 Units/1,000 ML] 20 unit in 1,000 ml IV TITRATE 09/22/19 21:27 Patient Status [ADT] Routine Vital Signs [RC] PFP Acetaminophen [Tylenol Bulk Bottle] See Dose Instructions PO Q4H PRN Docusate Sodium [Colace] 100 mg PO BID PRN Ibuprofen [Motrin Bulk Bottle] 600 mg PO Q6H PRN Assess Lochia [WOMSER] Per Unit Routine Assess Uterine Involution [WOMSER] Per Unit Routine 09/22/19 21:28 Ice Therapy [OM.PC] Per Unit Routine Perineal Care [OM.PC] Per Unit Routine Sitz Bath [OM.PC] Per Unit Routine - Assessment Assessment:: 09/22/2019 29 yo G3 now P3 delivered without complications 09/23/2019 Day One Bleeding decreasing and fundus firm hgb-12.5 Voiding and passing gas well Desires home tomorrow - Plan Plan:: 09/22/2019 29 yo here at 39 4/7 gestational weeks here for induction of labor due to history of precipitous FHTS category one Contractions irregular SVE-1-2/80/-2 50mcg cytotec placed vaginally Plan- Monitor for active labor Monitor FHTs Up ad palomo Can eat regular diet May get in tub for pain control Will plan and anticipate a vaginal delivery 09/22/2019 Routine cares Encourage and support 09/23/2019 Continue routine cares Continue to encourage and support Discharge home tomorrow
[2019-09-24 08:31] VITALS: BP 125/67; PULSE 71
--- NOTE | 2019-09-24 09:14 | PCM.PNPP ---
- General Info Date of Service: 09/24/19 (PPD 2 D/C) Admission Dx/Problem (Free Text): Patient Status Order with Admit Dx/Problem 09/22/19 10:11 Patient Status [ADT] Routine Admission Diagnosis/Problem Admission Diagnosis/Problem Functional Status: Reports: Pain Controlled - Review of Systems General: Reports: No Symptoms HEENT: Reports: No Symptoms Pulmonary: Reports: No Symptoms Cardiovascular: Reports: No Symptoms Gastrointestinal: Reports: No Symptoms Genitourinary: Reports: No Symptoms Musculoskeletal: Reports: No Symptoms Skin: Reports: No Symptoms Neurological: Reports: No Symptoms Psychiatric: Reports: No Symptoms - General Info Date of Service: 09/24/19 - Patient Data Vital Signs - Most Recent: Last Vital Signs Temp 96.8 F L 09/24/19 08:21 Pulse 71 09/24/19 08:21 Resp 16 09/24/19 08:21 BP 125/67 09/24/19 08:21 Pulse Ox 97 09/24/19 08:21 Weight - Most Recent: 200 lb 15.997 oz Lab Results - Last 24 Hours: Laboratory Results - last 24 hr 09/22/19 Range/Units 10:05 Urine Opiates Screen Negative (NEGATIVE) Ur Oxycodone Screen Negative (NEGATIVE) Urine Methadone Screen Negative (NEGATIVE) Ur Propoxyphene Screen Negative (NEGATIVE) Ur Barbiturates Screen Negative (NEGATIVE) Ur Tricyclics Screen Negative (NEGATIVE) Ur Phencyclidine Scrn Negative (NEGATIVE) Ur Amphetamine Screen Negative (NEGATIVE) U Methamphetamines Scrn Negative (NEGATIVE) Urine MDMA Screen Negative (NEGATIVE) U Benzodiazepines Scrn Negative (NEGATIVE) U Cocaine Metab Screen Negative (NEGATIVE) U Marijuana (THC) Screen Negative (NEGATIVE) Med Orders - Current: Current Medications Acetaminophen (Tylenol) 650 mg PO Q4H PRN PRN Reason: Pain (Mild 1-3) and fever Last Admin: 09/22/19 22:11 Dose: 650 mg Documented by: Acetaminophen (Tylenol Bulk Bottle) 0 mg PO Q4H PRN PRN Reason: Pain Docusate Sodium (Colace) 100 mg PO BID PRN PRN Reason: Constipation Oxytocin/Sodium Chloride (Pitocin In Ns 20 Units/1,000 Ml) 20 unit in 1,000 mls @ 500 mls/hr IV TITRATE VIRGILIO; Protocol Last Titration: 07/16/20 21:15 Dose: 125 mls/hr, 125 mls/hr Documented by: Ibuprofen (Motrin Bulk Bottle) 600 mg PO Q6H PRN PRN Reason: Pain Last Admin: 09/22/19 22:10 Dose: 600 mg Documented by: Ondansetron HCl (Zofran) 4 mg IV Q4H PRN PRN Reason: Nausea/Vomiting Sodium Chloride (Saline Flush) 10 ml FLUSH ASDIRECTED PRN PRN Reason: Keep Vein Open Discontinued Medications Benzocaine (Gdnh-U-Ijwffnj 20% [place]) 0 gm TOP ONETIME ONE Stop: 09/22/19 21:28 Last Admin: 09/22/19 22:09 Dose: 1 spray Documented by: Carboprost Tromethamine (Hemabate Ds) Confirm Administered Dose 250 mcg .ROUTE .STK-MED ONE Stop: 09/22/19 20:28 Last Admin: 09/22/19 22:11 Dose: Not Given Documented by: Emollient Ointment (Lansinoh Hpa) 1 gm TOP ONETIME ONE Stop: 09/22/19 21:28 Last Admin: 09/22/19 22:10 Dose: 1 applic Documented by: Fentanyl (Sublimaze) Confirm Administered Dose 100 mcg .ROUTE .STK-MED ONE Stop: 09/22/19 21:05 Last Admin: 09/22/19 23:44 Dose: Not Given Documented by: Fentanyl (Sublimaze) 50 mcg IVPUSH ONETIME ONE Stop: 09/22/19 21:08 Last Admin: 09/22/19 21:07 Dose: 50 mcg Documented by: Lidocaine HCl (Xylocaine 1%) Confirm Administered Dose 100 ml .ROUTE .STK-MED ONE Stop: 09/22/19 20:28 Last Admin: 09/22/19 22:11 Dose: Not Given Documented by: Methylergonovine Maleate (Methergine) Confirm Administered Dose 0.2 mg .ROUTE .STK-MED ONE Stop: 09/22/19 20:28 Last Admin: 09/22/19 22:11 Dose: Not Given Documented by: Misoprostol (Cytotec) 50 mcg VAG ONETIME ONE Stop: 09/22/19 10:12 Last Admin: 09/22/19 10:55 Dose: 50 mcg Documented by: Misoprostol (Cytotec) Confirm Administered Dose 800 mcg .ROUTE .STK-MED ONE Stop: 09/22/19 20:28 Last Admin: 09/22/19 22:11 Dose: Not Given Documented by: Agustina Bridges) 1 pad TOP ONETIME ONE Stop: 09/22/19 21:28 Last Admin: 09/22/19 22:10 Dose: 1 applic Documented by: - Interaction Infant Disposition, : [place] in Room with Family Feeding: Breastfed ; Nursed Well Support Person: - Recovery Exam Fundal Tone: Firm Fundal Level: 2 Fingerbreadths Below Umbilicus Fundal Placement: Midline Lochia Amount: Small Lochia Color: Rubra/Red Perineum Description: Intact, Minimal Bruising/Swelling Episiotomy/Laceration: None Bladder Status: Voiding Urinary Elimination: Voided - Exam General: Alert, Oriented HEENT: Pupils Equal Lungs: Clear to Auscultation, Normal Respiratory Effort Cardiovascular: Regular Rate, Regular Rhythm GI/Abdominal Exam: Soft Extremities: Normal Inspection, No Pedal Edema Skin: Warm, Dry, Intact Wound/Incisions: Healing Well Neurological: No New Focal Deficit Psy/Mental Status: Alert, Normal Affect, Normal Mood - Problem List & Annotations (1) SNOMED Code(s): 96867091 Code(s): Z34.90 - ENCNTR FOR SUPRVSN OF NORMAL , UNSP, UNSP TRIMESTER Status: Acute Current Visit: Yes Qualifiers: Weeks of gestation: 39 weeks Qualified Code(s): Z3A.39 - 39 weeks gestation of (2) History of precipitous delivery SNOMED Code(s): 857834513 Code(s): Z87.59 - PERSONAL HISTORY OF COMP OF PREG, CHLDBRTH AND THE PUERP Status: Acute Current Visit: Yes (3) Encounter for induction of labor SNOMED Code(s): 759123980 Code(s): Z34.90 - ENCNTR FOR SUPRVSN OF NORMAL , UNSP, UNSP TRIMESTER Status: Acute Current Visit: Yes (4) Nausea vomiting and diarrhea SNOMED Code(s): 7141497 Code(s): R11.2 - NAUSEA WITH VOMITING, UNSPECIFIED; R19.7 - DIARRHEA, UNSPECIFIED Status: Acute Current Visit: No - Problem List Review Problem List Initiated/Reviewed/Updated: Yes - Assessment Assessment:: 09/22/2019 29 yo G3 now P3 delivered without complications 09/23/2019 Day One Bleeding decreasing and fundus firm hgb-12.5 Voiding and passing gas well Desires home tomorrow 09/24/19 PPD 2 D/C happy better, no milk yet voiding and light flow Home today - Plan Plan:: 09/22/2019 29 yo here at 39 4/7 gestational weeks here for induction of labor due to history of precipitous FHTS category one Contractions irregular SVE-1-2/80/-2 50mcg cytotec placed vaginally Plan- Monitor for active labor Monitor FHTs Up ad [place]omo Can eat regular diet May get in tub for pain control Will plan and anticipate a vaginal delivery 09/22/2019 Routine cares Encourage and support 09/23/2019 Continue routine cares Continue to encourage and support Discharge home tomorrow 09/24/19 Home today See Selina 6-8 weeks, appointments have been made
== END 2019-09-24 11:10 | disposition home or self-care (01) | DRG 807 ==
LOC: JP.OBCHECK 09:49 → JP.OB 10:11 → OBSVTOIN 20:41 → JP.OB 20:41 → JP.MS 23:15
PROVIDERS: ADMIT Advanced Practice Midwife; ATTEND Advanced Practice Midwife
PROC: 10E0XZZ Delivery of Products of Conception, External Approach (ICD-10-PCS; principal; 2019-09-22)
DX: O80 Encounter for full-term uncomplicated delivery (principal); Z37.0 Single live birth; Z3A.39 39 weeks gestation of pregnancy; Z87.59 Personal history of other complications of pregnancy, childbirth and the puerperium; Z87.891 Personal history of nicotine dependence
CPT/HCPCS: 36415; 59409; 80053; 80305-QW; 81001; 85025; 99211; A9270-GY; J2590; J3010